=== PATIENT | male | born 1970 | race Caucasian/White ===

== ENCOUNTER 2019-09-09 14:05 | Emergency (ER) | payer OTHER ==
[~2019-09-09] VITALS: Ht 182.9 cm; Wt 108.9 kg
[2019-09-09] MEDS ORDERED: NORCO 5-325 TA1 EAC1 PO (14:50)
[2019-09-09] MEDS ORDERED: NAPROSYN500 MG PO (14:50)
[2019-09-09] MEDS ORDERED: AUGMENTIN 875-1 EACH PO (14:50)
[2019-09-09 15:22] VITALS: BP 138/85
== END 2019-09-09 15:23 | disposition home or self-care (01) ==
LOC: M.ERS 14:05
DX: S61.213A Laceration without foreign body of left middle finger without damage to nail, initial encounter (principal); Z88.1 Allergy status to other antibiotic agents; W26.8XXA Contact with other sharp object(s), not elsewhere classified, initial encounter; Y93.89 Activity, other specified; Y92.89 Other specified places as the place of occurrence of the external cause; Y99.8 Other external cause status